=== PATIENT | male | born 1980 | race Caucasian/White ===

== ENCOUNTER 2018-08-13 19:28 | Emergency (ER) | payer SELFPAY ==
[2018-08-13 19:29] VITALS: BP 139/68; PULSE 97; RESP 16; TEMP 36.8; O2SAT 98; BMI 23.6
[2018-08-13 19:40] VITALS: BP 139/78; TEMP 36.8
[2018-08-13] MEDS: Ciprofloxacin 500 MG Tablet PO (20:23)
--- NOTE | 2018-08-13 20:36 | ED.RN ---
OK TO D/C SEPSIS SCREEN PER .
--- NOTE | 2018-08-13 21:28 | ED.VISSUMM ---
- ER Visit Summary Date of Service: 08/13/18 Chief Complaint: Left inguinal abscess History of Present Illness: The patient is a 37 M who presents with left inguinal abscess that has been constant for the past 1-2 weeks. Patient states the pain is a constant dull ache but is sharp at times. Patient states he noticed some purulent drainage tonight. Patient denies any fevers or chills. Patient denies any paresthesias or weakness. Patient states he was recently on a course of Zithromax for cat scratch fever. Patient states the cat scratch fever was in the same location and never cleared up. Physical Examination: Vital signs are stable. Patient is afebrile. Patient is in no acute distress. Oral mucosa is pink and moist. Neck is supple. Trachea is midline. No JVD noted. Heart was regular rate and rhythm. Lungs are clear and equal bilateral. Abdomen is soft. Bowel sounds are normal. There is no tenderness. Skin is warm dry. There is a tender fluctuant abscess in the left inguinal area. There is also a erythematous area just proximal to that. There is minimal fluctuance of this area as well. There is no active discharge or drainage noted. There is some left inguinal adenopathy noted. Cranial nerves II through XII are intact. There are no focal motor or sensory deficits noted. Emergency Department Course and Treatment: The left inguinal abscess area was anesthetized with 1% plain lidocaine. The area was cleaned with Shur-Clens. The area was incised with an 11 blade scalpel using a cruciate incision. Large amount of purulent drainage was expressed. Patient tolerated the procedure well. Patient was given a dose of Cipro here. Patient was given a prescription for Cipro. Patient was instructed to follow-up with his primary care physician in 7-10 days. Patient understood and was agreeable with the plan. All questions were answered. Disposition: Discharge home Impression: Left inguinal abscess This note was generated with [employer] dictation software. It may contain incorrect words, spelling, and punctuation that were not noted in review of the chart prior to signing ED Disposition - Plan for ED Patient: Disposition: Home or Assisted Living Diagnosis: Abscess of left groin Instructions: ED Abscess IandD Prescriptions: Ciprofloxacin [Cipro] 500 mg PO BID #20 tab Referrals: Sathish Arteaga MD [Primary Care Provider] -
[2018-08-13 21:41] VITALS: PULSE 77; RESP 12; O2SAT 96
== END 2018-08-13 21:48 | disposition home or self-care (01) ==
PROVIDERS: Emergency Provider Emergency Medicine
DX: L02.214 Cutaneous abscess of groin (principal); Z72.0 Tobacco use
CPT/HCPCS: 10060; 99283

== ENCOUNTER 2021-01-08 11:51 | Emergency (ER) | payer OTHER, SELFPAY ==
[2021-01-08 11:52] VITALS: BP 158/99; PULSE 88; RESP 18; TEMP 36.3; O2SAT 97; BMI 23.7
--- NOTE | 2021-01-08 12:35 | EX.ED.VIS.EY ---
HPI History of Present Illness Chief Complaint: Eye Problem Informant: patient Narrative Narrative: Patient is a 40-year-old male presenting with right eye pain. Patient states he was putting male together when a rubber band snapped and hit his open right eye. This occurred yesterday. He has had pain since. He notes his eyes swollen and is having a hard time opening it today. He feels that his vision is blurry. He does not wear any contact lenses or corrective lenses. He does not have an eye doctor. He denies any drainage from his eyes. No other complaints at this time. PFSH PFSH Home Medications ciprofloxacin HCl 500 mg PO BID #20 tab 08/13/18 [Rx Last Taken Unknown] erythromycin 1 applic RIGHT EYE Q8H 7 Days #3.5 g 01/08/21 [Rx Last Taken Unknown] Allergy/AdvReac Type Severity Reaction Status Date / Time No Known Allergies Allergy Verified 01/08/21 11:54 Social History Smoking Status: Current every day smoker tobacco type: cigarettes ROS ROS ED Constitutional Constitutional ED: Denies chills or fever(s) Eyes Eyes: Reports blurry vision right and other Details: right eye lid swelling ENT ENT ED: Denies ear pain or sore throat Cardiovascular Cardiovascular: Denies chest pain Respiratory/Chest Respiratory/Chest: Denies dyspnea Gastrointestinal Gastrointestinal: Denies nausea or vomiting Musculoskeletal Musculoskeletal: Denies arthralgias or myalgias Integumentary Denies rash Neurologic Neurologic: Denies headache(s) or weakness Psychiatric Psychiatric: Denies depression EXAM Physical Exam Const Vital Signs: 01/08/21 11:52 Temperature 97.3 F L Temperature Source Temporal Pulse Rate 88 Respiratory Rate 18 Blood Pressure 158/99 H Blood Pressure Mean 118 Pulse Ox 97 Oxygen Delivery Method Room Air Positive well nourished and well developed General Appearance ED: well developed HEENT atraumatic Nose: external nose normal Eyes Eyelid: eyelids abnormal right upper eyelid (redness, swelling ) and right lower eyelid (redness, swelling) Conjunctiva: conjunctiva abnormal right Cornea: cornea abnormal Positive for right Cornea - Right Eye: Positive for abrasion; Negative for dendrites present, edema and foreign body and fluorescein used Pupil: sluggish, pupil size - right Right Pupil Size: 36 in and pupil size - left Left Pupil Size: 6 ft EOM: EOM abnormal Slit Lamp: slit lamp exam performed with fluorescein Neck supple Resp normal respiratory effort Neuro oriented x3 and CN's II-XII intact bilaterally Sensorium / Orientation: alert Psych Mood & Affect: Negative for depressed MDM MDM MDM Narrative Medical decision making narrative: Patient evaluated for right eye pain in the setting of an injury yesterday. No obvious foreign body. Does have a corneal abrasion in the middle of his pupil. Negative Maurizio sign. Is placed on erythromycin ointment. Has improvement of symptoms significantly with tetracaine. He is given ophthalmology for outpatient follow-up. Instructed to also take ibuprofen as needed for pain. Discharge Plan Triage Chief Complaint: Eye Problem ED Provider: Sasha Barnard Dx/Rx/DC Orders Clinical Impression: Abrasion of cornea, right Instructions: ED Corneal Abrasion Prescriptions: New erythromycin 5 mg/gram (0.5 %) ointment 1 applic RIGHT EYE Q8H 7 Days Qty: 3.5 RF: 0 No Action ciprofloxacin HCl 500 MG tablet 500 mg PO BID Qty: 20 RF: 0 Primary Care Provider: Care Physician,No Primary Referrals: Angel Greenberg MD [STAFF PHYSICIAN] - 1-2 Days if not improving Care Physician,No Primary [Primary Care Provider] - Disposition Disposition: Home, Self Care
[2021-01-08] MEDS: Fluorescein 1 MG STRIP 1 STRIP OPHTHALMIC (13:29)
[2021-01-08] MEDS: Tetracaine 0.5% Ophthalmic Bottle 1 DRP OPHTHALMIC (13:29)
[2021-01-08 14:00] VITALS: PULSE 72; RESP 16; TEMP 36.6
[2021-01-08] MEDS: Erythromycin Base 1 OPTH.TUBE 1 APPLIC RIGHT EYE (14:00)
== END 2021-01-08 14:01 | disposition home or self-care (01) ==
PROVIDERS: Emergency Provider Emergency Medicine
DX: S05.01XA Injury of conjunctiva and corneal abrasion without foreign body, right eye, initial encounter (principal); F17.210 Nicotine dependence, cigarettes, uncomplicated; W20.8XXA Other cause of strike by thrown, projected or falling object, initial encounter; Y93.89 Activity, other specified; Y92.89 Other specified places as the place of occurrence of the external cause; Y99.8 Other external cause status
CPT/HCPCS: 99282

== ENCOUNTER 2024-09-16 19:44 | Emergency (ER) | payer SELFPAY ==
[2024-09-16 19:46] VITALS: BP 131/90; PULSE 100; RESP 18; TEMP 36.9; O2SAT 99; BMI 26.4
--- NOTE | 2024-09-16 20:56 | EDS_ITS ---
HPI History of Present Illness Chief Complaint: Other, Pain/Inj PFSH PFSH Medical History (Updated 09/16/24 @ 22:26 by Malika Connolly) Abscess Home Medications ?Medication ?Instructions ?Recorded ?Last Taken ?Type ciprofloxacin HCl 500 mg tablet 500 mg PO BID #20 tabs 08/13/18 Unknown Rx erythromycin 5 mg/gram (0.5 %) eye 1 applic RIGHT EYE Q8H 7 days #3.5 01/08/21 Unknown Rx ointment grams cephalexin 500 mg capsule 500 mg PO TID 7 days #21 cap s 09/16/24 Unknown Rx sulfamethoxazole 800 1 tab PO BID 7 days #14 tabs 09/16/24 Unknown Rx mg-trimethoprim 160 mg tablet (Bactrim DS) Allergy/AdvReac Type Severity Reaction Status Date / Time No Known Allergies Allergy Verified 09/16/24 19:51 Social History (Updated 09/16/24 @ 22:26 by Malika Connolly) household members: family current occupational status: employed Smoking Status: Current every day smoker tobacco type: cigarettes EXAM Physical Exam Const Vital Signs: 09/16/24 19:46 09/16/24 22:26 Temperature 98.5 F Temperature Source Oral Pulse Rate 100 Respiratory Rate 18 Respiratory Effort Normal Non-Labored Respiratory Pattern Normal Blood Pressure 131/90 H Blood Pressure Mean 103 Pulse Ox 99 Oxygen Delivery Method Room Air [facility] [place] Medical decision making narrative: HISTORY OF PRESENT ILLNESS: 42-year-old male presents concern for an enlarged inguinal lymph node. States he presented to medical facility and was given antibiotics (azithromycin) however he notes the size is increased. Denies any trauma to the area. Denies any IV drug use. Notes of overlying redness. REVIEW OF SYSTEMS: Pertinent positives: Inguinal lymphadenopathy Pertinent negatives: Fever, vomiting PHYSICAL EXAM: Nursing triage notes reviewed, Vital signs reviewed Constitutional: please see mdm Skin: An area of fluctuance was noted in the left groin approximately 3 x 3 cm. There is overlying erythema. There is no crepitus or bullae noted MEDICAL DECISION MAKING: Chief Complaint: Inguinal lymphadenopathy External records reviewed: Reviewed prior ED visits MDM Narrative: Patient was initially hemodynamically stable, afebrile and nontoxic-appearing. Exam consistent with abscess versus swollen lymph node. POCUS ultrasound showed evidence of a loculated abscess in the left groin. There is no Doppler echo to suggest a blood vessel. I considered the following differential diagnosis: Abscess, lymphadenopathy Procedure: Incision and Drainage simple Consent: Written consent obtained The procedure was performed by myself. Location: Left groin Risks and benefits: Risks, benefits, and alternatives were discussed. Questions were sought and answered, and verbal consent provided for the procedure. Anesthesia: 1% lidocaine without epinephrine Procedure Description: Placed an 18-gauge needle into the area of maximal fluctuance with ultrasound assistance and obtained approximately 4 cc of purulent fluid. Distally was sent for culture. The patient tolerated the procedure well without complications. Patient was placed on broad-spectrum antibiotics (Bactrim and Keflex) The patient and/or family, caregivers express understanding. The patient and/or family, caregivers agrees with the plan. Shared decision making: I will have a discussion with the patient and or visitors regarding risk/benefits of further testing or admission. They will be made aware of of the risk/benefits inherent in this decision they will be given the opportunity to voice understanding. Total critical care time today provided was at least 0 minutes. This excludes separately billable procedures. Critical care time (if documented) is secondary to the patient having high probability of clinically significant/life threatening deterioration in the patient's condition which required my urgent intervention. Impression: 1. Left groin abscess Dispo: Discharge home This note was generated with [employer] dictation software. It may contain incorrect words, spelling, and punctuation that were not noted in review of the chart prior to signing. Discharge Plan Triage Chief Complaint: Other, Pain/Inj ED Provider: Emiliano Santacruz Dx/Rx/DC Orders Instructions: Abscess Drainage Prescriptions: New sulfamethoxazole-trimethoprim [Bactrim DS] 800-160 mg tablet 1 tab PO BID 7 Days Qty: 14 0RF cephalexin 500 mg capsule 500 mg PO TID 7 Days Qty: 21 0RF No Action ciprofloxacin HCl 500 MG tablet 500 mg PO BID Qty: 20 0RF erythromycin 5 mg/gram (0.5 %) ointment 1 applic RIGHT EYE Q8H 7 Days Qty: 3.5 0RF Primary Care Provider: Care Physician,No Primary Referrals: Beto Ordonez MD [Med Staff - Active Staff] - Activity Restrictions/Additional Instructions: Thank you for trusting us with your care today! You been diagnosed with an abscess. This was drained. Please take Tylenol (2 pills, 650 mg), ibuprofen (2 pills, 400 mg) every 6 hours as needed for pain and fever control. Please take antibiotics as prescribed until course complete. Please return to the emergency department if your symptoms change or worsen. Please follow with your primary care physician for further outpatient evaluation and management. Print Language: Slovenian Disposition Disposition: Home, Self Care Discharge Date/Time: 09/16/24 22:41
[2024-09-16] MEDS: Lidocaine 1% (20 ml mdv) 20 ML Vial 5 ML INFILT (22:15)
== END 2024-09-16 22:41 | disposition home or self-care (01) ==
PROVIDERS: Emergency Provider Emergency Medicine; Visit Provider Emergency Medicine
DX: L02.214 Cutaneous abscess of groin (principal); F17.210 Nicotine dependence, cigarettes, uncomplicated; R59.0 Localized enlarged lymph nodes
CPT/HCPCS: 10060; 87070; 87205; 99283; A4216

== ENCOUNTER 2024-09-23 08:57 | Emergency (ER) | payer BC, SELFPAY ==
[2024-09-23 08:58] VITALS: BP 127/77; PULSE 95; RESP 16; TEMP 36.6; O2SAT 100; BMI 26.3
--- NOTE | 2024-09-23 09:13 | EX.ED.DYSGE1 ---
HPI History of Present Illness Chief Complaint: Abscess Narrative Narrative: Patient is a 43-year-old male with past medical history of cat scratch fever who presents to the emergency department with concern of left groin abscess. He states that on 09/09/2024 he noted that he had swelling and redness in his groin he went to urgent care they placed him on a antibiotic and noted that a week later it seemed to be worsening. Patient states that he came to the emergency department and the physician did a ultrasound and attempted to drain this. He states that he had 2 small incisions made however no purulent material was expressed and then they placed a needle in the area and obtained approximately 2 cc of purulent material. He states that he was placed on 2 antibiotics and he was taking these as prescribed not missing doses. He states that recently he noted worsening pain and swelling again therefore he came back for further evaluation management. [facility] Medical History Abscess Home Medications ?Medication ?Instructions ?Recorded ?Last Taken ?Type ciprofloxacin HCl 500 mg tablet 500 mg PO BID #20 tabs 08/13/18 Unknown Rx erythromycin 5 mg/gram (0.5 %) eye 1 applic RIGHT EYE Q8H 7 days #3.5 01/08/21 Unknown Rx ointment grams cephalexin 500 mg capsule 500 mg PO TID 7 days #21 caps 09/16/24 Unknown Rx sulfamethoxazole 800 1 tab PO BID 7 days #14 tabs 09/16/24 Unknown Rx mg-trimethoprim 160 mg tablet (Bactrim DS) cephalexin 500 mg capsule 500 mg PO BID 7 days #14 caps 09/23/24 Unknown Rx sulfamethoxazole 800 1 tab PO BID 7 days #14 tabs 09/23/24 Unknown Rx mg-trimethoprim 160 mg tablet Allergy/AdvReac Type Severity Reaction Status Date / Time No Known Allergies Allergy Verified 09/23/24 08:59 Social History household members: family current occupational status: employed Smoking Status: Current every day smoker tobacco type: cigarettes ROS ROS ED ROS Narrative Constitutional: Complains of chills states that he is unsure if he had a fever as he has been taking Advil for pain control at home Abdomen: Denies abdominal pain nausea vomit diarrhea : Denies urinary symptoms Neurological: Denies numbness, weakness, tingling Skin: Complains of left inner thigh pain and swelling EXAM Physical Exam Narrative Exam Narrative: General: Patient is lying in bed rest comfortably appear to be acute distress Head: Atraumatic, normocephalic Eyes: PERRL bilaterally, EOMI bilateral, no conjunctival injection noted Neck: Soft, supple, trachea midline Cardiovascular: Regular rate and rhythm Abdomen: Soft, nondistended, tender to palpation Extremities: +5/5 strength noted in the bilateral upper and lower extremities Neurological: Patient following commands knew that he was at [facility] year is 2024 Skin: Patient has erythema and warmth to the left medial thigh that feels indurated underneath no active purulent drainage noted Const Vital Signs: 09/23/24 08:58 09/23/24 13:00 Temperature 97.8 F Temperature Source Oral Pulse Rate 95 78 Respiratory Rate 16 16 Blood Pressure 127/77 H 120/75 Blood Pressure Mean 93 90 Pulse Ox 100 95 Oxygen Delivery Method Room Air MDM MDM MDM Narrative Medical decision making narrative: Patient is a 43-year-old male who presented to the emergency department chief complaint of left thigh abscess that worsening. On the differential diagnose includes Melamin to abscess with failed outpatient therapy, cellulitis. Once workup is obtained reviewed he will be reevaluated. Patient to give morphine Zofran for pain. Patient CBC reviewed showed no evidence leukocytosis white blood count normal 9.9, he was 14.8, plate count normal at 4 3. Patient odium was noted be 130, potassium normal 4.4, creatinine 1.04. Patient lactic acid less than 1. Patient AST and ALT were 16 and 13 respectively. Patient's lower extremity CT was reviewed showed moderate-sized bilateral inguinal hernias left greater than right nondilated small bowel loops seen in the left inguinal hernia. Patient is aware that he has easy has not followed up with anybody on these yet. Patient has a 2.1 x 2.2 cm fluid collection in the left inferior groin focal calcifications are noted. This is likely representing an abscess which correlates clinically he has not recently had a vascular procedure done. Procedure note Timeout protocol was performed prior to initiating procedure. The area was prepped and draped in the usual, sterile manner. The site was anesthetized with 1% percent lidocaine without epinephrine. A linear incision along the local skin lines were made and the purulent material expressed. This was sent for culture. The abscess was explored thoroughly and sequestered pockets were opened. Bleeding was minimal. Packing was placed and he was advised to remove a small amount of this each day until it is completely gone. Follow-up: The patient tolerated procedure well without complications. Standard postprocedure care is explained and return precautions were given. Patient tolerated procedure well without any complications he was given IV Rocephin and vancomycin here in the emergency department. He will be placed back on the Keflex and Bactrim as he has finished this and this was likely not working secondary to a walled off abscess. He was advised to return with worsening symptoms or other concerns. He is vies follow-up with general surgery for his inguinal hernias as well as a primary care physician on the culture results. He is advised to take antibiotics as prescribed he is agreeable this plan all question concerns answered he is discharged home in stable condition Lab Data Labs: Laboratory Results - last 24 hr 09/23/24 09:29 WBC 9.9 RBC 4.69 Hgb 14.8 Hct 43.1 MCV 91.9 MCH 31.6 MCHC 34.3 RDW Std Deviation 42.5 RDW Coeff of Ziyad 12.7 Plt Count 403 MPV 8.4 Immature Gran % (Auto) 0.400 Neut % (Auto) 55.4 Lymph % (Auto) 29.0 Seminole % (Auto) 5.2 Eos % (Auto) 8.8 H Baso % (Auto) 1.2 H Absolute Neuts (auto) 5.5 Absolute Lymphs (auto) 2.87 Nucleated RBC % 0 Sodium 138 Potassium 4.4 Chloride 103 Carbon Dioxide 24.9 Anion Gap 10 BUN 22 H Creatinine 1.04 Estim Creat Clear Calc 82.65 Est GFR (MDRD) Non-Af 91 BUN/Creatinine Ratio 21.3 H Glucose 90 Lactic Acid < 1.0 Calcium 9.2 Total Bilirubin 0.20 AST 16 ALT 13 Alkaline Phosphatase 109 Total Protein 6.8 Albumin 3.9 Globulin 2.9 Albumin/Globulin Ratio 1.3 Radiography Diagnostic Testing: Clinical Impression(s) from Imaging Studies Lower Extremity CT 09/23/24 09:45 IMPRESSION: Moderate-sized bilateral inguinal hernias left greater than right. A nondilated small bowel loop is seen in the left inguinal hernia. 2.1 cm x 2.2 cm fluid collection in the inferior left groin as described. Focal calcifications are seen. This may represent a focal abscess per clinical information. If the patient has had a recent vascular procedure, this may represent a resolving hematoma. Clinical correlation recommended. Reading Location: [facility] Discharge Plan Triage Chief Complaint: Abscess ED Provider: Vipul Frausto Dx/Rx/DC Orders Clinical Impression: Abscess of left thigh Prescriptions: New cephalexin 500 mg capsule 500 mg PO BID 7 Days Qty: 14 0RF sulfamethoxazole-trimethoprim 800-160 mg tablet 1 tab PO BID 7 Days Qty: 14 0RF No Action ciprofloxacin HCl 500 MG tablet 500 mg PO BID Qty: 20 0RF erythromycin 5 mg/gram (0.5 %) ointment 1 applic RIGHT EYE Q8H 7 Days Qty: 3.5 0RF sulfamethoxazole-trimethoprim [Bactrim DS] 800-160 mg tablet 1 tab PO BID 7 Days Qty: 14 0RF cephalexin 500 mg capsule 500 mg PO TID 7 Days Qty: 21 0RF Primary Care Provider: Beto Ordonez Referrals: Chester West MD [Med Staff - Active Staff] - Care Physician,No Primary [Non-Staff] - Rose Marie Baez Kirsten, SECURITY MESSENGER-C [[facility]] - Activity Restrictions/Additional Instructions: Follow-up on the wound culture with your primary care physician. You were referred to general surgery for your bilateral inguinal hernias you need to follow-up with them. More antibiotics were sent to your pharmacy you need to continue to take these. We did express a significant amount of purulent material from the wound here in the emergency department. Remove a small amount of packing each day until it is all out of the wound. The wound will heal from the inside out. Return with worsening symptoms or other concerns Print Language: Ukrainian Disposition Disposition: Home, Self Care
[2024-09-23] MEDS: Ondansetron 4 MG/2 ML Vial IV ×2 (09:31→12:29)
[2024-09-23] MEDS: 0.9% Normal Saline (1000mL) 1,000 ML 999 ML IV (09:32)
[2024-09-23] MEDS: Morphine 4 MG/ML Syringe IV ×2 (09:32→12:29)
[2024-09-23 09:37] LABS: Absolute Lymphocyte Count 2.87 X10^3/uL (0.83-4.51); Absolute Neutrophil Count 5.5 X10^3/uL (2.0-7.7); Basophil# 0.12 X10^3/uL; Basophil% 1.2 % (0-1); Eosinophil# 0.87 X10^3/uL; Eosinophils% 8.8 % (0-5); Hematocrit 43.1 % (40-54); Hemoglobin 14.8 g/dL (13.0-16.5); Lymphocyte # 2.87 X10^3/ul (0.83-4.51); Mean Corp Hgb Conc 34.3 g/dL (32-36); Mean Corpuscular Hgb 31.6 pg (27.0-32.0); Mean Corpuscular Volume 91.9 fL (80-94); Mean Platelet Vol. 8.4 fl (6.2-12.0); Monocyte# 0.51 X10^3/uL; Monocyte% 5.2 % (0-10); NRBC Flagged by Analyzer 0 % (0-5); Neutrophil # 5.47 X10^3/uL (2.7-7.7); Neutrophil % 55.4 % (47-70); Platelet Count 403 K/mm3 (150-450); RBC Distribution Width CV 12.7 % (11.6-14.6); RBC Distribution Width SD 42.5 fl (35.1-43.9); Red Blood Count 4.69 M/mm3 (4.6-6.2); White Blood Count 9.9 K/mm3 (4.4-11.0)
--- NOTE | 2024-09-23 09:45 | CT_ITS ---
PROCEDURE: EXTREMITY LOWER WITH CONTRAST 09/23/2024 REASON FOR EXAM: ABSCESS TECHNIQUE: Axial CT images of the left lower extremity obtained with intravenous contrast. Coronal and Sagittal reconstruction series were provided. CONTRAST: Isovue-300 VOLUME: 100 mLmL One or more dose reduction techniques were used (e.g., Automated exposure control, adjustment of the mA and/or kV according to patient size, use of iterative reconstruction technique). RADIATION DOSE SUMMARY: CTDlvol: 15.78 mGy DLP: 1570.91 mGycm COMPARISON: None FINDINGS: Bones: Unremarkable Joints: Unremarkable Soft Tissues: Moderate-sized bilateral inguinal hernias more prominent on the left side containing fat and a nondilated small bowel loop. There is a 2.1 cm 2.2 cm fluid collection in the region of the inferior left groin. This is heterogeneous with focal areas of calcification. This extends into the skin surface caudally. This most likely represents an abscess or post angiographic procedure changes. Clinical correlation recommended. There is also evidence of several small benign-appearing inguinal lymph nodes. CT/Extremity Lower WITH Contrast IMPRESSION: Moderate-sized bilateral inguinal hernias left greater than right. A nondilate d small bowel loop is seen in the left inguinal hernia. 2.1 cm x 2.2 cm fluid collection in the inferior left groin as described. Foca l calcifications are seen. This may represent a focal abscess per clinical information. If the patient has had a recent vascul ar procedure, this may represent a resolving hematoma. Clinical correlation recommended. Reading Location: [place] [id number]
[2024-09-23 10:02] LABS: ALB/GLOB Ratio 1.3 RATIO (0.9-2.4); AST(SGOT) 16 U/L (<=37); Alanine Aminotransfer ALT/SGPT 13 U/L (<=46); Albumin, Serum 3.9 g/dL (3.5-5.0); Alkaline Phosphatase 109 U/L (40-129); Anion Gap 10 (5-15); BUN 22 mg/dL (4-19); BUN/Creat Ratio 21.3 RATIO (10-20); Calcium,Total 9.2 mg/dL (7.6-11.0); Carbon Dioxide 24.9 mmol/L (21.0-32.0); Chloride 103 mmol/L (98-108); Creatinine, Serum 1.04 mg/dL (0.70-1.20); EST Glomerular Filtration Rate 91 (>60); Estimated Creatinine Clearance 82.65 ml/min (50-250); Globulin 2.9 g/dL (2.2-4.2); Glucose 90 mg/dL (70-99); Potassium 4.4 mmol/L (3.3-5.1); Protein, Total 6.8 g/dL (5.9-8.4); Sodium Level 138 mmol/L (133-145)
[2024-09-23 10:08] LABS: Lactic Acid < 1.0 mmol/L (0.0-2.0)
[2024-09-23] MEDS: Lidocaine 1% (20 ml mdv) 20 ML Vial 10 ML INFILT (12:31)
[2024-09-23] MEDS: Ceftriaxone 1 GM/50 ML BAG IV (12:56)
[2024-09-23 13:00] VITALS: BP 120/75; PULSE 78; RESP 16; O2SAT 95
[2024-09-23] MEDS: Vancomycin IV 1,000 MG/200 ML BAG 200 MG IV (13:29)
[2024-09-23 14:39] VITALS: BP 120/75; PULSE 78; RESP 16; TEMP 36.6; O2SAT 95
== END 2024-09-23 14:39 | disposition home or self-care (01) ==
PROVIDERS: Emergency Provider Emergency Medicine; PCP Family Medicine; Visit Provider Emergency Medicine
DX: L02.416 Cutaneous abscess of left lower limb (principal); F17.210 Nicotine dependence, cigarettes, uncomplicated
CPT/HCPCS: 10060; 73701; 80053; 83605; 85025; 87070; 87075; 87205; 96361; 96365; 96375; 96376; 99283; Q9967; A4216; J2405

== ENCOUNTER → 2024-11-06 | Outpatient (CLI) | payer BC, SELFPAY ==
--- NOTE | 2024-11-06 08:06 | CT_ITS ---
PROCEDURE: EXTREMITY LOWER WITH CONTRAST 11/06/2024 REASON FOR EXAM: CHECK ABCESS TECHNIQUE: Axial CT images of the left thigh and groin obtained with intravenous contrast. Coronal and Sagittal reconstruction series were provided. CONTRAST: 98 cc Isovue 370 One or more dose reduction techniques were used (e.g., Automated exposure control, adjustment of the mA and/or kV according to patient size, use of iterative reconstruction technique). RADIATION DOSE SUMMARY: DLP: 998.51 mGycm COMPARISON: September 23 2024 FINDINGS: Bones: There is a 1.2 by 1.0 cm peripheral blastic focus in the distal femoral diaphysis, medial aspect, image 206/244, with benign features, and no significant interval change. There is no significant joint effusion at the knee or hip. Muscular structures are unremarkable. Soft Tissues: There is a 3.0 x 2.5 cm uncomplicated fat containing left inguinal hernia, which contains a loop of bowel in the prior, and no longer contains bowel. A fat containing right inguinal hernia is partly visible measuring at least 3.5 cm, similar to the prior. There is interval significant decrease in inguinal adenopathy with all remaining nodes measuring less than 1 cm in short axis. There is subcutaneous complex density at the surgical site which has calcified components and appears slightly lobulated, significantly decreased in size compared to the prior, now measuring 2.3 by 1.[address]/Extremity Lower WITH Contrast IMPRESSION: There is a 1.2 by 1.0 cm peripheral blastic focus in the distal femoral diaphys is, medial aspect, image 206/244, with benign features, and no significant interval change. There is a 3.0 x 2.5 cm uncomplicated fat containing left inguinal hernia, whic h contains a loop of bowel in the prior, and no longer contains bowel. A fat containing right inguinal hernia is partly visible measuring at least 3.5 cm, similar to the prior. There is interval significant decrease in inguinal adenopathy with all remainin g nodes measuring less than 1 cm in short axis. T Here is subcutaneous complex density at the surgical site which has calcified c omponents and appears slightly lobulated, significantly decreased in size compared to the prior, now measuring 2.3 by 1.2 by 2.4 cm. Reading Location: [place]
== END | disposition home or self-care (01) ==
PROVIDERS: PCP Family Medicine; Referring Provider Surgery; Visit Provider Surgery
DX: L02.416 Cutaneous abscess of left lower limb (principal)
CPT/HCPCS: 73701; Q9967